=== PATIENT | female | born 1985 | race Caucasian/White ===

== ENCOUNTER 2016-12-07 17:00 | Inpatient (IN) | payer OTHER ==
--- NOTE | 2016-12-07 18:46 | OBPROG ---
Labor Progress Note Assessment/Plan: Assessment:cat 1 fhr feeling some cramping feeling positive movement martinez bulb in place exam 1cm/50/-2 cephalic Plan:martinez bulb continuous monitoring low dose pitocin 12/07/16 18:37 Subjective/Intrapartum Course: 12/07/16 18:36 Doing well asking lots of orientation questions martinez bulb placed in office reactive nst in office per dr. diaz cat 1 fhr here in labor and delivery + accels occasional contractions will do low dose pitocin 1 mu q 30minutes and hold until martinez dc'd - SVE Dilation (cm): 1 Effacement (%): Less than 50 Station: -3 Membranes: Intact - Contraction Pattern Assessment Current Contraction Pattern: Irregular - FHR Assessment Neal FHR (bpm): 135 FHR Pattern Variability: Moderate FHR Category: 1 - Physical Exam General Appearance: WD/WN, alert, no apparent distress Respiratory: chest non-tender, lungs clear, normal breath sounds Cardiac/Chest: regular rate, rhythm Abdomen: normal bowel sounds Extremities: normal range of motion, Carlos's sign (negative bilaterally) DTR- Lower Extremities: Knee (R): 1+, Knee (L): 1+ (no clonus) Skin: normal color, warm/dry Neuro/Psych: no motor/sensory deficits, alert, normal mood/affect, oriented x 3 Oxytocin Orders Assessment - Pre-Induction/Augmentation Assessment Gestational Age: 36 week(s) and 6 day(s) ICD10 Worksheet Patient Problems: Problems Problem Status Onset iol iugr< 2% Acute
[2016-12-07] MEDS ORDERED: AMPICILLIN SODIUM 2 GM in NS 100 ML IV ONE ×2 (19:02→23:45)
[2016-12-07] MEDS ORDERED: LR 1,000 ML IV PRN (19:02)
[2016-12-07] MEDS ORDERED: TERBUTALINE SULFATE 1 MG/ML VIAL IV PRN (19:02)
[2016-12-07] MEDS ORDERED: OLIVE OIL 118 ML BTL MISC PRN (19:02)
[2016-12-07] MEDS ORDERED: EPSOM SALT 454 GM TP PRN (19:02)
[2016-12-07] MEDS ORDERED: OXYTOCIN 20 UNITS in LR 1,000 ML IV PRN (19:02)
[2016-12-07] MEDS ORDERED: OXYTOCIN 30 UNITS in LR 500 ML IV SCH (19:30)
[2016-12-07 19:39] LABS: % IMMATURE GRANULYOCYTES 0.5 % (0.0-1.1); ABSOLUTE IMMATURE GRANULOCYTES 0.05 10^3/uL (0.00-0.10); ADD DIFF? NO; ADD MORPH? NO; ADD SCAN? NO; ATYPICAL LYMPHOCYTE FLAG 0 (0-99); FRAGMENT RBC FLAG 0 (0-99); HEMATOCRIT 41.6 % (38.0-47.0); HEMOGLOBIN 14.9 g/dL (12.6-16.3); LEFT SHIFT FLG 0 (0-99); LIPEMIA HEMOLYSIS FLAG 90 (0-99); MEAN CELL HEMOGLOBIN 31.5 pg (27.9-34.1); MEAN CELL HEMOGLOBIN CONCENTR. 35.8 g/dL (32.4-36.7); MEAN CELL VOLUME 87.9 fL (81.5-99.8); PLATELET CLUMPS FLAG 0 (0-99); PLATELET COUNT 206 10^3/uL (150-400); RED BLOOD CELL COUNT 4.73 10^6/uL (4.18-5.33); RED CELL DISTRIBUTION WIDTH 12.7 % (11.5-15.2)
[2016-12-07] MEDS ORDERED: AMPICILLIN SODIUM 1 GM in NS 100 ML IV SCH (23:04)
--- NOTE | 2016-12-07 23:06 | OBPROG ---
Labor Progress Note Assessment/Plan: Assessment:cat 1 fhr feeling some cramping feeling positive movement martinez bulb out with traction exam 5/80/-2 cephalic pitocin per protocol Plan:pitocin per protocol 12/07/16 18:37 12/07/16 23:05 Subjective/Intrapartum Course: 12/07/16 18:36 Doing well asking lots of orientation questions martinez bulb placed in office reactive nst in office per dr. diaz cat 1 fhr here in labor and delivery + accels occasional contractions will do low dose pitocin 1 mu q 30minutes and hold until martinez dc'd Objective: 12/07/16 18:42 Patient ABO/Rh O POSITIVE 12/07/16 18:42 - SVE Dilation (cm): 5 Effacement (%): 80 Station: -2 Membranes: Intact - Contraction Pattern Assessment Current Contraction Pattern: Irregular - FHR Assessment Neal FHR (bpm): 135 FHR Pattern Variability: Moderate FHR Category: 1 Oxytocin Orders Assessment - Pre-Induction/Augmentation Assessment Gestational Age: 36 week(s) and 6 day(s) ICD10 Worksheet Patient Problems: Problems Problem Status Onset iol iugr< 2% Acute
--- NOTE | 2016-12-08 00:17 | GHP ---
[f rep st] HISTORY AND PHYSICAL DATE OF ADMISSION: 12/07/2016 Patient is a 31-year-old, 1, para 0, with an EDC of 12/29/2016, which gives her a gestational age of 36 and 6/7 weeks. Patient has been receiving care through [facility] since early o n in her at 7-8 weeks gestation. Dates were verified an early ultrasound. Patient had a s ubchorionic hemorrhage that evolved and resolved. MEDICAL HISTORY: Raynaud disease. Patient is immune to parvovirus. SURGICAL HISTORY: Benign. GYNECOLOGICAL HISTORY: Benign. SOCIAL HISTORY: Patient denies tobacco use, drug use, is . HISTORY: Patient, at the anatomy ultrasound, had a 58th percentile for growth. Cervical l ength was 4.86 cm. All of anatomy was seen. Placenta was fundal. Amniotic fluid was normal. Place nta grade was 1. Baby was cephalic. Central placental cord insertion, 3 vessels. All of anatomy wa s seen. Subsequent growth after 28 weeks was 1 cm below expected x3 visits. A growth ultrasound was ordered. Percentile for growth 2nd percentile. BPD is 5 percentile. Head circumference is less th an 2nd percentile. AC is less than 2nd percentile. Femur length is less than 2nd percentile. Doppl ers were elevated. NSTs were done biweekly until 36 and 6/7 weeks. DOTTY was 8.2 cm on this last ultr asound. Consult with Dr. Dianelys Pham. Plan of care was induction of labor to begin at 36 and 6/7 wee ks since patient was minimally 1 cm. GBS has not been returned, so patient is being treated for unkn own GBS. REVIEW OF SYSTEMS: Times 9. PHYSICAL EXAMINATION: GENERAL: Patient is awake, alert, oriented x3. LUNGS: Clear bilaterally. A BDOMEN: Bowel sounds are positive, all 4 quadrants. EXTREMITIES: DTRs are 1+ bilaterally. Homans sign is negative bilaterally. GENITOURINARY: A Arnold bulb was placed in the office today. Patient was 1 cm, 50% effaced, very posterior, very high. ALLERGIES: Patient is not allergic to any medication. MEDICATIONS: Patient is taking her vitamins. Patient is O positive, antibody negative. Hematocrit is 41.6 hemoglobin is 14.9, platelet count is 2 06,000. Patient's RPR is nonreactive. Recently, patient was treated for Hanh and Gardnerella. H epatitis B is negative. HIV is negative. Parvovirus, patient is immune. Rubella is immune. Hepati tis B is pending. Trichomonas was negative. PLAN OF CARE: 1. Arnold bulb for mechanical dilation. 2. Pitocin per protocol. 3. GBS unknown, treatment for GBS. 4. Consult Dr. Dianelys Pham on plan of care. 5. [employer] SUPERVISOR at delivery. /[id number]/MODL
--- NOTE | 2016-12-08 03:34 | OBPROG ---
Labor Progress Note Assessment/Plan: Assessment:cat 2 fhr occasional decelerations feeling some pain feeling positive movement arom clear fluid no fluid noted exam 6/80/-1 cephalic pitocin at 12mu encouraged to get up move around to assist descent and change in cervix Plan:pitocin per protocol 12/07/16 18:37 12/07/16 23:05 12/08/16 03:34 Subjective/Intrapartum Course: 12/07/16 18:36 Doing well coping 12/08/16 03:30 doing well coping feeling occasional contractions denies pain Objective: 12/07/16 18:42 Patient ABO/Rh O POSITIVE 12/07/16 18:42 - SVE Dilation (cm): 6 Effacement (%): 80 Station: -1 Membranes: AROM Amniotic Fluid Color: Clear - Contraction Pattern Assessment Current Contraction Pattern: Irregular - FHR Assessment Neal FHR (bpm): 135 (occasional variables) FHR Pattern Variability: Moderate FHR Category: 2 - Procedures Non-surgical Procedures: Amniotomy Oxytocin Orders Assessment - Pre-Induction/Augmentation Assessment Gestational Age: 36 week(s) and 6 day(s) ICD10 Worksheet Patient Problems: Problems Problem Status Onset iol iugr< 2% Acute
[2016-12-08] MEDS: AMPICILLIN SODIUM 1 GM in NS 100 ML IV SCH ×2 (03:52→16:34)
[2016-12-08] MEDS ORDERED: AMMONIA AROMATIC 1 EACH AMP IH ONE (03:57)
[2016-12-08] MEDS ORDERED: OLIVE OIL 118 ML BTL ONE (03:57)
[2016-12-08] MEDS ORDERED: TERBUTALINE SULFATE 1 MG/ML VIAL ONE (03:57)
[2016-12-08] MEDS ORDERED: OXYTOCIN 10 UNIT/ML VIAL ONE (03:57)
[2016-12-08] MEDS ORDERED: LIDOCAINE 1% 300 MG/30 ML SDV ONE (03:57)
[2016-12-08] MEDS ORDERED: MISOPROSTOL 200 MCG TAB ONE (03:58)
--- NOTE | 2016-12-08 04:57 | OBPROG ---
Labor Progress Note Assessment/Plan: Assessment:cat 2 fhr occasional decelerations feeling pain coping well active labor feeling positive movement arom clear fluid no fluid noted exam 6/100/0 cephalic pitocin at 12mu contractions q2-3 minutes requesting to get into the tub with assistance Plan:expectant management 12/07/16 18:37 12/07/16 23:05 12/08/16 03:34 12/08/16 04:55 Subjective/Intrapartum Course: 12/07/16 18:36 Doing well coping 12/08/16 03:30 doing well coping feeling occasional contractions denies pain Objective: 12/07/16 18:42 Patient ABO/Rh O POSITIVE 12/07/16 18:42 - SVE Dilation (cm): 6 Effacement (%): 100 Station: 0 Membranes: AROM Amniotic Fluid Color: Clear - Contraction Pattern Assessment Current Contraction Pattern: Irregular - FHR Assessment Neal FHR (bpm): 135 FHR Pattern Variability: Moderate FHR Category: 1 - Procedures Non-surgical Procedures: Amniotomy Oxytocin Orders Assessment - Pre-Induction/Augmentation Assessment Gestational Age: 36 week(s) and 6 day(s) ICD10 Worksheet Patient Problems: Problems Problem Status Onset iol iugr< 2% Acute
[2016-12-08] MEDS ORDERED: fentaNYL 100 MCG/2 ML INJ ONE (06:26)
[2016-12-08] MEDS ORDERED: fentaNYL 100 MCG/2 ML INJ IV ONE (06:45)
[2016-12-08] MEDS ORDERED: ceFAZolin 2 GM in D5W 100 ML IV ONE (06:45)
[2016-12-08] MEDS ORDERED: MISOPROSTOL 200 MCG TAB PR ONE (06:51)
--- NOTE | 2016-12-08 07:13 | OBDEL ---
Info Type: Vaginal Presentation at Delivery: Vertex L&D Analgesia/Anesthesia Type: None GBS+: Yes Antibiotic Used for + GBS: Ampicillin Intrapartum Medications: Generic Name Dose Route Start Last Admin Trade Name Freeleazar PRN Reason Stop Dose Admin Oxytocin 30 units/ Lactated 503 mls @ 0 mls/hr 12/07/16 19:30 12/07/16 23:21 Ringer's IV 06/05/17 19:29 503 mls CONT HELEN Administration Protocol Per Protocol Ampicillin Sodium 1 gm/ Sodium 100 mls @ 200 mls/hr 12/08/16 04:00 12/08/16 03:52 Chloride IV 01/07/17 03:59 100 mls Q4H HELEN Administration Protocol Discontinued Medications Generic Name Dose Route Start Last Admin Trade Name Freq PRN Reason Stop Dose Admin Ampicillin Sodium 2 gm/ Sodium 110 mls @ 220 mls/hr 12/07/16 19:02 12/07/16 23:43 Chloride IV 12/07/16 19:31 110 mls ONCE ONE Administration Protocol - Hospital Course Intrapartum: 12/07/16 18:36 Doing well coping 12/08/16 03:30 doing well coping feeling occasional contractions denies pain Indications for Delivery: Growth Restriction w/Abnormal Doppler studies Vaginal Delivery - Delivery Provider Delivery Physician/CNM: Lucia Hernandez - Labor and Delivery Onset of Contractions Date: 12/08/16 Onset of Contractions Time: 04:47 Onset of Contractions Type: Induced Rupture of Membranes Date: 12/08/16 Rupture of Membranes Time: 03:24 Amniotic Fluid Color: Clear Dilation Complete Date: 12/08/16 Dilation Complete Time: 05:18 Placenta Delivery Date: 12/08/16 Placenta Delivery Time: 06:51 (manual removal by dr. diaz. evulsed cord) Total Hours of Labor: 2 Non-surgical Procedures: Amniotomy Laceration: Other (Specify) (multiple laceration skid pratt no repair needed hemostatic) Vaginal Sponge Count Correct: Yes Vaginal Needle Count Correct: Yes Vaginal Sweep Performed: Yes EBL: 350 Delivery Events: None - Medications Labor Augmentation/Induction Methods Used: Pitocin, Arnold Bulb Labor Augmentation/Induction Indication: IUGR Starbuck Data Neal Delivery Date: 12/08/16 Delivery Time: 05:54 LUCA: 12/29/16 Gestational Age: 37 week(s) and 0 day(s) Score (1 Min): 7 Score (5 Min): 9 ICD10 Worksheet Patient Problems: Problems Problem Status Onset iol iugr< 2% Acute
[2016-12-08] MEDS ORDERED: fentaNYL 100 MCG/2 ML INJ IVP ONE (07:15)
[2016-12-08] MEDS ORDERED: HYDROCORTISONE 0.5% CREAM TP PRN (07:16)
[2016-12-08] MEDS ORDERED: HYDROCODONE/APAP 5/325 TAB PO PRN (07:16)
[2016-12-08] MEDS ORDERED: SIMETHICONE 80 MG TAB CHEW PO PRN (07:16)
[2016-12-08] MEDS ORDERED: DOCUSATE SODIUM 100 MG CAP PO PRN (07:16)
[2016-12-08] MEDS ORDERED: ACETAMINOPHEN 325 MG TAB PO PRN (07:16)
--- NOTE | 2016-12-08 08:39 | GOP ---
[f rep st] OPERATIVE REPORT DATE OF OPERATION: 12/08/2016 SURGEON: Dianelys Pham DO PREOPERATIVE DIAGNOSIS: POSTOPERATIVE DIAGNOSIS: PROCEDURE PERFORMED: FINDINGS: DESCRIPTION OF PROCEDURE: The patient is a 31-year-old 1, para 0, who presented for induction of labor for intrauterine growth restriction. Patient had a Arnold bulb placed and progressed in active labor and was started on Pitocin. The patient had a spontaneous vaginal delivery by Kim Hernandez the director voice. After the ba by delivered, the cord avulsed off and the cord was clamped and cut. I was called into the room to d o a manual extraction of the placenta. The patient was given 50 mcg of fentanyl and an exploration o f the uterus was performed and retained placenta was identified. In 2 passes, the placenta was remov ed. One additional aspiration of the uterus was performed and no obvious placental pieces were noted . A transabdominal ultrasound was performed which showed a thin endometrial stripe. The possibility of leaving a small piece of placental tissue inside was discussed with the patient and her partner. The patient tolerated the procedure well. /[id number]/MODL
[2016-12-08] MEDS: IBUPROFEN 600 MG TAB PO PRN ×2 (09:19→22:14)
[2016-12-09] MEDS: IBUPROFEN 600 MG TAB PO PRN ×3 (09:23→22:09)
--- NOTE | 2016-12-09 14:24 | OBPP ---
Progress Note Assessment/Plan: Assessment: 31 y/o PPD #1 s/p IOL secondary to IUGR and now with mildly elevated BP Plan: I do not feel that we need to start antihypertensives now, but will watch closely and have her RTO for a BP check next week. and NICU support. Routine PPC. 12/09/16 14:25 Subjective/ Course: 12/09/16 14:22 Pt is doing well this am. She denies PRINCE, scotomata, RUQ pain. She has mild cramping and min lochia. She is ambulating, voiding without difficulty and working on breast feeding and pumping. Baby is doing well and may be d/c by the end of the week. Objective: 12/07/16 18:42 Patient ABO/Rh O POSITIVE 12/07/16 18:42 Temp Pulse Resp BP Pulse Ox 36.1 C 72 14 136/89 H 97 12/09/16 08:00 12/09/16 13:00 12/09/16 08:00 12/09/16 13:00 12/08/16 19:46 Uterine Position/Fundal Height: Umbilicus -2 Uterine Tone: Firm Physical Exam - Physical Exam Neck: non-tender, full range of motion, supple Respiratory: chest non-tender, lungs clear, normal breath sounds Cardiac/Chest: regular rate, rhythm Abdomen: normal bowel sounds Extremities: swelling (tr), Carlos's sign (neg)
[2016-12-09 20:55] VITALS: RESP 16; O2SAT 96
[2016-12-10] MEDS: IBUPROFEN 600 MG TAB PO PRN ×2 (06:06→12:21)
[2016-12-10 06:46] LABS: ALANINE AMINOTRANSFERASE 46 IU/L (9-52); ASPARTATE AMINOTRANSFERASE 42 IU/L (14-46); BILIRUBIN,TOTAL 0.1 mg/dL (0.1-1.4); BILIRUBIN-UNCONJUGATED 0.1 mg/dL (0.0-1.1); CREATININE 0.6 mg/dL (0.6-1.0); GLOMERULAR FILTRATION RATE > 60; LACTATE DEHYDROGENASE 665 IU/L (313-618); URIC ACID 4.4 mg/dL (2.5-6.8)
[2016-12-10 07:03] LABS: ADD DIFF? NO; ADD MORPH? NO; ADD SCAN? NO; ATYPICAL LYMPHOCYTE FLAG 0 (0-99); FRAGMENT RBC FLAG 0 (0-99); LEFT SHIFT FLG 0 (0-99); LIPEMIA HEMOLYSIS FLAG 90 (0-99); MEAN CELL HEMOGLOBIN 31.3 pg (27.9-34.1); PLATELET CLUMPS FLAG 0 (0-99)
[2016-12-10 08:42] LABS: RED BLOOD CELL COUNT 4.19 10^6/uL (4.18-5.33)
[2016-12-10 08:43] LABS: HEMATOCRIT 36.8 % (38.0-47.0); HEMOGLOBIN 13.1 g/dL (12.6-16.3); MEAN CELL HEMOGLOBIN CONCENTR. 35.6 g/dL (32.4-36.7); MEAN CELL VOLUME 87.8 fL (81.5-99.8); PLATELET COUNT 196 10^3/uL (150-400); RED CELL DISTRIBUTION WIDTH 13.1 % (11.5-15.2)
[2016-12-10 08:44] LABS: % IMMATURE GRANULYOCYTES 0.5 % (0.0-1.1)
[2016-12-10 08:45] LABS: ABSOLUTE IMMATURE GRANULOCYTES 0.05 10^3/uL (0.00-0.10)
[2016-12-10 11:44] VITALS: BP 119/85; PULSE 87; TEMP 98.1
--- NOTE | 2016-12-10 13:57 | PDDCSUM ---
Discharge Summary Discharge Summary: S) pt doing well, she denies any pain or heavy bleeding. She is very emotional re: baby status and IUGR. She is ambulating well, without difficulty. She is voiding without difficulty. She is pumping 2/2 NICU O) Constitutional: WNWF HEENT: normocephalic, atraumatic Heart: RRR, no murmur Chest: CTA-B Abdomen: Soft, nontender, nondistended Uterus: firm @U-2 lochia: min rubra Extremities: negative cody's, 2+pedal edema A) [id number] PPD#3 manual removal of placenta elevated BP's (no meds) P) routine PP care cont to pump/ d/c home today- will board with baby Pre E S&S discussed in great detail RTO in 4 days for BP check
== END 2016-12-10 18:30 | disposition home or self-care (01) | DRG 767 ==
LOC: FLD 17:15 → FOB 12-08 10:19
PROVIDERS: ADMIT Advanced Practice Midwife; ATTEND Obstetrics & Gynecology
PROC: 3E033VJ Introduction of Other Hormone into Peripheral Vein, Percutaneous Approach (ICD-10-PCS; 2016-12-07)
PROC: 10907ZC Drainage of Amniotic Fluid, Therapeutic from Products of Conception, Via Natural or Artificial Opening (ICD-10-PCS; principal; 2016-12-08)
PROC: 10D17Z9 Manual Extraction of Products of Conception, Retained, Via Natural or Artificial Opening (ICD-10-PCS; principal; 2016-12-08)
PROC: 10E0XZZ Delivery of Products of Conception, External Approach (ICD-10-PCS; principal; 2016-12-08)
DX: O36.5930 Maternal care for other known or suspected poor fetal growth, third trimester, not applicable or unspecified (principal); Z37.0 Single live birth; Z3A.37 37 weeks gestation of pregnancy
CPT/HCPCS: J0290; J0690; J2590; J3010; J3105